=== PATIENT | female | born 1970 | race Caucasian/White ===

== ENCOUNTER 2021-09-02 12:43 | Outpatient (CLI) | payer OTHER, SELFPAY ==
--- NOTE | ~2021-09-02 | US_ITS ---
EXAMINATION: US pelvic complete EXAM DATE: 09/02/2021 13:51 INDICATION: Uterine myoma. TECHNIQUE: Pelvic transabdominal sonogram was performed. Patient declined transvaginal imaging. There are multiple grayscale and Doppler images available for interpretation. There is no prior study for comparison. FINDINGS: Uterus measures 11.3 x 7.4 x 4.4 cm, with hyperechoic mass, some regions of calcification suspected measuring 4 cm. There is no other partially exophytic mass suspected off the right side of the uterus measuring 5 cm, likely fibroid. Endometrial stripe measures 11 mm, within normal limits. There is no free pelvic fluid. Right adnexa: The ovary measures 4.7 x 4.7 x 2.0 cm, cm has an anechoic cyst or 2 contiguous cysts ta keira up most of this volume. Ovarian vascular flow confirmed. Left adnexa: The ovary measures 4.1 x 2.8 x 3.2 cm and is morphologically normal. Ovarian vascular fl ow confirmed. IMPRESSION: 1. Right ovarian cysts or single complex cyst which could be hemorrhagic cyst, dominant follicles, b ut cystic ovarian neoplasm not entirely excludable. Considered 6-12 week follow-up ultrasound. 2. Fibroids. Reviewed, dictated and finalized at location A. [employer] IMPRESSION: 1. Right ovarian cysts or single complex cyst which could be hemorrhagic cyst, dominant follicles, but cystic ovarian neoplasm not entirely excludable. Consi dered 6-12 week follow-up ultrasound. 2. Fibroids.
== END 2021-09-02 12:44 | disposition home or self-care (01) ==
LOC: ANHIMG 12:48
PROVIDERS: PCP Internal Medicine Infectious Disease; Visit Provider Nurse Practitioner Family
DX: D25.9 Leiomyoma of uterus, unspecified (principal); N83.201 Unspecified ovarian cyst, right side
CPT/HCPCS: 76856

== ENCOUNTER 2024-01-31 12:48 | Outpatient (CLI) | payer OTHER, SELFPAY ==
--- NOTE | ~2024-01-31 | US_ITS ---
EXAMINATION: US carotid duplex BI DATE: 01/31/2024 13:19 INDICATION: Carotid occlusion TECHNIQUE: Grayscale, color Doppler, and pulsed Doppler images of the cervical carotid arteries were obtained. The degree of vessel stenosis is placed in one of the following categories: normal, <50%, 5 0-69%, >=70% but less than near-occlusion, near-occlusion, or total occlusion. Note that percent sten osis relative to normal distal artery lumen diameter is indirectly measured from velocity measurement s as described by Thom, et al. Radiology 2003; 229:340-346. Notes: Normal: Peak systolic velocity <125 centimeters/sec and no plaque <50%. Peak systolic velocity <125 ( EDV <40; ICA/CCA PSV ratio <2.0; used these factors only a tandem lesions or low cardiac output or co ntralateral disease) 50-69 %: PSV 125-230 (EDV 40-100; ratio 2-4) >= 70% but less than near occlusion: PSV greater than 230 (EDV > 100; ratio> 4.0) Near Occlusion: PSV that is variable; markedly narrowed lumen Occlusion: Absent flow on color/spectral Doppler and no lumen on raya scale. COMPARISON: None. FINDINGS: RIGHT: The right common carotid artery (CCA) peak systolic velocity (PSV) is 115 cm/s. The right internal ca rotid artery (ICA) PSV is 99 cm/s. The right ICA end-diastolic velocity (EDV) is 41 cm/s. The right I CA/CCA PSV ratio is 0.9. The external carotid artery (ECA) PSV is 126 cm/s. There is antegrade flow i n the right vertebral artery. LEFT: The left CCA PSV is 114 cm/s. The left ICA PSV is 70 cm/s. The left ICA EDV is 35 cm/s. The left ICA/ CCA PSV ratio is 0.6. The ECA PSV is 73 cm/s. There is antegrade flow in the left vertebral artery. IMPRESSION: 1. Less than 50% stenosis in the right internal carotid artery by sonographic criteria. 2. Less than 50% stenosis in the left internal carotid artery by sonographic criteria. Reviewed, dictated and finalized at location B. IMPRESSION: 1. Less than 50% stenosis in the right internal carotid artery by sonographic ana mike. 2. Less than 50% stenosis in the left internal carotid artery by sonographic juno merrill.
== END 2024-01-31 12:49 | disposition home or self-care (01) ==
LOC: ANHIMG 12:48
PROVIDERS: PCP Internal Medicine; Visit Provider Internal Medicine
DX: I65.23 Occlusion and stenosis of bilateral carotid arteries (principal)
CPT/HCPCS: 93880